=== PATIENT | female | born 1950 | race Caucasian/White ===

== ENCOUNTER → 2016-06-25 13:08 | Outpatient (CLI) | payer MEDICARE ==
[2014-10-04 08:32] VITALS: BMI 24.9
[~2016-06-25 13:08] MED LIST: BAYER CHEWABLE81 MG PO; BYSTOLIC2.5 MG PO; CELEXA40 MG PO; ESTRACE1 MG PO; HYZAAR 50-12.51 TAB PO; NEURONTIN600 MG PO; PREDNISONE20 MG PO; REGLAN5 MG PO
[2016-06-25 13:55] LABS: BASOPHILS 0.4 % (0.0-2.0); EOSINOPHILS 5.8 % (0-7); HEMATOCRIT 34.7 % (36.0-48.0); HEMOGLOBIN 11.2 g/dL (12-16); IMMATURE GRANULOCYTES 0.4 % (0-5); LYMPHOCYTES 32.5 % (15-50); MCH 30.4 pg (26.0-34.0); MCHC 32.3 g/dL (31.0-37.0); MCV 94.3 fL (80.0-100.0); MEAN PLATELET VOLUME 9.7 fL (7.4-10.4); MONOCYTES 7.2 % (2-11); NEUTROPHILS 53.7 % (40-80); PLATELET COUNT 274 10x3/uL (130-400); RBC 3.68 10x6/uL (4.00-5.40); RDW 15.5 % (11.5-14.5); WBC 7.3 10x3/uL (4.8-10.8)
[2016-06-25 14:13] LABS: ALBUMIN 3.4 g/dL (3.4-5.0); ANION GAP 11.5 mmol/L (8-16); BILIRUBIN - TOTAL 0.17 mg/dL (0.2-1.3); CALCIUM 8.6 mg/dL (8.5-10.1); CARBON DIOXIDE 28.7 mmol/L (21.0-32.0); CHOL - HDL RATIO 3.7 ratio (2.3-4.1); CREATININE - SERUM 1.2 mg/dL (0.6-1.3); POTASSIUM - SERUM 4.2 mmol/L (3.5-5.1); PROTEIN - SERUM 6.3 g/dL (6.4-8.2)
== END | disposition home or self-care (01) ==
LOC: D.LAB 13:08
PROVIDERS: Internal Medicine Cardiovascular Disease
DX: I73.9 Peripheral vascular disease, unspecified (principal); I10 Essential (primary) hypertension

== ENCOUNTER 2016-10-27 19:19 | Emergency (ER) | payer MEDICARE ==
[2014-10-04 08:32] VITALS: BMI 24.9
[2016-10-27 20:05] LABS: BASOPHILS 0.2 % (0-2); EOSINOPHILS 3.4 % (0-7); HEMATOCRIT 34.7 % (36.0-48.0); HEMOGLOBIN 11.4 g/dL (12-16); IMMATURE GRANULOCYTES 1.3 % (0-5); LYMPHOCYTES 30.4 % (15-50); MCH 29.7 pg (26.0-34.0); MCHC 32.9 g/dL (31.0-37.0); MCV 90.4 fL (80.0-100.0); MEAN PLATELET VOLUME 9.5 fL (7.4-10.4); MONOCYTES 7.1 % (2-11); NEUTROPHILS 57.6 % (40-80); PLATELET COUNT 347 10x3/uL (130-400); RBC 3.84 10x6/uL (4.00-5.40); RDW 14.4 % (11.5-14.5); WBC 9.7 10x3/uL (4.8-10.8)
[2016-10-27 20:21] LABS: INR 1.01 (0.85-1.17); PROTIME 13.1 SECONDS (11.6-15.0)
[2016-10-27 20:31] LABS: D-DIMER-QUANTITATIVE < 0.27 ug/mLFEU (0.20-0.54)
[2016-10-27 20:41] LABS: ALBUMIN 3.1 g/dL (3.4-5.0); ANION GAP 16.1 mmol/L (8-16); BILIRUBIN - TOTAL 0.12 mg/dL (0.2-1.3); CALCIUM 8.3 mg/dL (8.5-10.1); CARBON DIOXIDE 22.5 mmol/L (21.0-32.0); CREATININE - SERUM 1.2 mg/dL (0.6-1.3); POTASSIUM - SERUM 3.6 mmol/L (3.5-5.1); PROTEIN - SERUM 6.7 g/dL (6.4-8.2)
[2016-10-27 20:49] LABS: TROPONIN-I 0.036 ng/mL (0.000-0.060)
== END 2016-10-27 23:00 | disposition home or self-care (01) ==
LOC: D.ER 19:19
PROVIDERS: Family Medicine
DX: J44.1 Chronic obstructive pulmonary disease with (acute) exacerbation (principal); I10 Essential (primary) hypertension; K27.9 Peptic ulcer, site unspecified, unspecified as acute or chronic, without hemorrhage or perforation

== ENCOUNTER → 2016-11-05 14:25 | Outpatient (CLI) | payer MEDICARE ==
[2014-10-04 08:32] VITALS: BMI 24.9
== END | disposition home or self-care (01) ==
LOC: D.CT 14:25
DX: J18.9 Pneumonia, unspecified organism (principal)

== ENCOUNTER → 2016-12-19 08:00 | Outpatient (CLI) | payer MEDICARE ==
[2014-10-04 08:32] VITALS: BMI 24.9
== END | disposition home or self-care (01) ==
LOC: D.US 08:00
DX: I10 Essential (primary) hypertension (principal); M32.9 Systemic lupus erythematosus, unspecified; R60.9 Edema, unspecified; Z68.28 Body mass index [BMI] 28.0-28.9, adult

== ENCOUNTER 2017-01-23 05:35 | Outpatient (CLI) | payer MEDICARE ==
[~2017-01-23] VITALS: Ht 170.2 cm; Wt 81.6 kg
[2017-01-23] VITALS (9 sets, daily range): BP systolic 101–137; BP diastolic 47–68; BMI 28.2
[2017-01-23] MEDS ORDERED: HYDROCHLOROTHIA50 MG PO (07:04)
[2017-01-23] MEDS ORDERED: TENORMIN25 MG PO (07:04)
[2017-01-23 07:05] LABS: ANION GAP 11.3 mmol/L (8-16); CALCIUM 8.6 mg/dL (8.5-10.1); CARBON DIOXIDE 29.2 mmol/L (21.0-32.0); CREATININE - SERUM 0.9 mg/dL (0.6-1.3); POTASSIUM - SERUM 4.5 mmol/L (3.5-5.1)
[2017-01-23] MEDS ORDERED: PEPCID40 MG PO (07:05)
[2017-01-23] MEDS ORDERED: REQUIP1 MG PO (07:05)
[2017-01-23] MEDS ORDERED: LISINOPRIL5 MG PO (07:06)
[2017-01-23 07:07] LABS: BASOPHILS 0.4 % (0-2); EOSINOPHILS 4.2 % (0-7); HEMATOCRIT 36.7 % (36.0-48.0); HEMOGLOBIN 11.3 g/dL (12-16); IMMATURE GRANULOCYTES 0.4 % (0-5); MCHC 30.8 g/dL (31.0-37.0); MCV 94.3 fL (80.0-100.0); MEAN PLATELET VOLUME 9.7 fL (7.4-10.4); MONOCYTES 9.4 % (2-11); NEUTROPHILS 57.6 % (40-80); PLATELET COUNT 355 10x3/uL (130-400); RBC 3.89 10x6/uL (4.00-5.40); RDW 14.5 % (11.5-14.5); WBC 8.3 10x3/uL (4.8-10.8)
[2017-01-23 07:12] LABS: APTT 25.4 SECONDS (22.8-39.4); INR 0.93 (0.85-1.17); PROTIME 12.3 SECONDS (11.6-15.0)
--- NOTE | 2017-01-23 10:15 | NUR ---
0945- RECEIVED PT VIA BED FROM IR. PT IS ALERT AND ORIENTED. ON ROOM AIR. IV SEEN TO LEFT FOREARM THAT IS SALINE LOCKED. PT INSTRUCTED TO BE ON BEDREST ORDERED UNTIL 1530. IS AT BEDSIDE. WILL ADMIT PT AND CONTINUE TO MONITOR.
--- NOTE | 2017-01-23 16:43 | NUR ---
1207- PTS DRESSING TO LOWER LEFT BACK IS CLEAN, DRY, AND INTACT WITH NO BLEEDING SEEN. WILL CONTINUE TO MONITOR.
--- NOTE | 2017-01-23 17:30 | NUR ---
CALLED INTO PTS ROOM FOR PT NOT FEELING WELL, PT REQUESTED WE CHECK HER BLOOD PRESSURE. THIS NURSE CHECKED PTS BLOOD PRESSURE WHICH IS 162/66. PT STATED SHE HAS HER BLOOD PRESSURE MEDICATIONS WITH HER AND CAN TAKE HER LOSARTAN. I INFORMED PT THAT I NEED TO CALL AND SPEAK WITH NURSE PRACTIONER TO SEE WHAT SHE WOULD LIKE TO DO AND TO HAVE TAKE HOME MEDICATIONS HOME OR WE CAN SEND THEM TO PHARMACY. PT STATES SHE WILL HAVE TAKE HOME MEDICATIONS HOME. ROBIN ESCOBAR PAGED. WILL AWAIT CALLBACK AND CONTINUE TO MONITOR.
--- NOTE | 2017-01-23 17:40 | NUR ---
RECEIVED CALLBACK FROM ROBIN ESCOBAR NP WITH NEW ORDERS RECEIVED. WILL CONTINUE TO MONITOR.
--- NOTE | 2017-01-23 19:58 | NUR ---
PT AWAKE, ALERT, ORIENTED, LYING IN BED, HAS BECOME ACUTELY ILL, VOMITING UNCONTROLLABLY EVEN AFTER PHERNERGAN SUPP. IM PHENERGAN GIVEN WELL. PT DENIES ANY ACUTE CHANGES THAT COULD HAVE STARTED HER N/V, HOWEVER, PT DID BECOME TEARFUL DURING OUR CONVERSATION R/T HER BX AND POSSIBLE OUTCOME. HAS GONE HOME FOR THE NIGHT. WILL CONTINUE TO CONSOLE AND MONITOR PT CLOSELY.
--- NOTE | 2017-01-23 23:39 | NUR ---
PT CONTINUES WITH UNCONTROLLED NAUSEA, NO VOMITING AT THIS TIME. PRN ZOFRAN GIVEN WITH LITTLE RELIEF. HOLDING GABAPENTIN AND ATIVAN UNTIL NAUSEA IMPROVES. CONTINUE TO MONITOR CLOSELY.
[2017-01-24 01:20] VITALS: BP 104/52
[2017-01-24 05:43] VITALS: BP 109/54
--- NOTE | 2017-01-24 08:00 | NUR ---
INTRODUCED MYSELF TO PT PRIMARY RN FOR TODAYS SHIFT. PT IS A&O SITTING UP IN BED RESTING WITH AT BEDSIDE. PT IS PRETTY ANXIOUS TO BE DISCHARGED. PT HAD RENAL BIOPSY DONE AND SHOULD BE FINE FOR DISCHARGE TODAY. LEFT FLANK DRSG CDI AND ALL URINE HAS BEEN CLEAR YELLOW. WILL TALK WITH DOCTORS AND SEE ABOUT DISCHARGE.
[2017-01-24 08:44] VITALS: BP 106/64
[2017-01-24 09:46] VITALS: Ht 170.2 cm; Wt 81.6 kg
--- NOTE | 2017-01-24 10:02 | NUR ---
PT REFUSED HER MORNING LOSARTAN AND STATED AT HOME SHE WOULDNT TAKE IT WITH A SBP OF 106. STILL AWAITING RENAL FOR DISCHARGE ORDERS. WILL CTM.
[2017-01-24 10:40] LABS: BASOPHILS 0.1 % (0-2); EOSINOPHILS 1.7 % (0-7); HEMATOCRIT 35.5 % (36.0-48.0); HEMOGLOBIN 11.2 g/dL (12-16); IMMATURE GRANULOCYTES 0.3 % (0-5); LYMPHOCYTES 24.4 % (15-50); MCH 29.3 pg (26.0-34.0); MCHC 31.5 g/dL (31.0-37.0); MCV 92.9 fL (80.0-100.0); MEAN PLATELET VOLUME 9.3 fL (7.4-10.4); MONOCYTES 10.4 % (2-11); NEUTROPHILS 63.1 % (40-80); PLATELET COUNT 311 10x3/uL (130-400); RBC 3.82 10x6/uL (4.00-5.40); RDW 14.4 % (11.5-14.5); WBC 9.4 10x3/uL (4.8-10.8)
[2017-01-24 10:48] LABS: ANION GAP 10.6 mmol/L (8-16); CALCIUM 8.5 mg/dL (8.5-10.1); CARBON DIOXIDE 30.1 mmol/L (21.0-32.0); POTASSIUM - SERUM 3.7 mmol/L (3.5-5.1)
[2017-01-24] MEDS ORDERED: ZOFRAN ODT4 MG/UDTAB PO (11:19)
[2017-01-24 12:04] VITALS: BP 109/52
--- NOTE | 2017-01-24 12:04 | NUR ---
D/C L.FA PIV WITH CATHETER TIP FULLY INTACT. DISCHARGE TEACHING PROVIDED AND PAPERS SIGNED. PT AND DENY ANY QUESTIONS OR CONCERNS AND ARE READY TO LEAVE.
== END 2017-01-24 12:05 | disposition home or self-care (01) ==
LOC: D.OPS 05:35 → D.RAD 08:00 → D.M2 09:50 → D.OPS 01-24 12:05
PROVIDERS: Emergency Medicine; Internal Medicine Nephrology
DX: R80.9 Proteinuria, unspecified (principal); I12.9 Hypertensive chronic kidney disease with stage 1 through stage 4 chronic kidney disease, or unspecified chronic kidney disease; N18.4 Chronic kidney disease, stage 4 (severe); M32.9 Systemic lupus erythematosus, unspecified; R60.9 Edema, unspecified; Z01.812 Encounter for preprocedural laboratory examination

== ENCOUNTER → 2017-04-09 14:43 | Outpatient (CLI) | payer MEDICARE ==
[2017-01-24 09:46] VITALS: BMI 28.2
[~2017-04-09 14:43] MED LIST changes: +HYDROCHLOROTHIA50 MG PO; +LISINOPRIL5 MG PO; +PEPCID40 MG PO; +REQUIP1 MG PO; +TENORMIN25 MG PO; +ZOFRAN ODT4 MG/UDTAB PO
== END | disposition home or self-care (01) ==
LOC: D.US 14:43
DX: R59.0 Localized enlarged lymph nodes (principal)

== ENCOUNTER → 2017-11-28 06:08 | Outpatient (CLI) | payer MEDICARE ==
[2017-01-24 09:46] VITALS: BMI 28.2
== END | disposition home or self-care (01) ==
LOC: D.MAMMO 06:08
DX: Z12.31 Encounter for screening mammogram for malignant neoplasm of breast (principal)

== ENCOUNTER 2017-12-19 09:32 | Outpatient (CLI) | payer MEDICARE ==
[2017-01-24 09:46] VITALS: BMI 28.2
== END 2017-12-19 09:33 | disposition home or self-care (01) ==
LOC: D.MAMMO 09:32
DX: R92.8 Other abnormal and inconclusive findings on diagnostic imaging of breast (principal)

== ENCOUNTER 2018-12-16 19:34 | Emergency (ER) | payer OTHER ==
[~2018-12-16] VITALS: Ht 170.2 cm; Wt 79.1 kg
[2018-12-16 19:38] VITALS: Ht 170.2 cm; Wt 79.1 kg
[2018-12-16] MEDS ORDERED: ELAVIL25 MG PO (19:52)
[2018-12-16] MEDS ORDERED: GEMFIBROZIL600 MG PO (19:53)
[2018-12-16] MEDS ORDERED: OMEPRAZOLE40 MG PO (19:53)
[2018-12-16] MEDS ORDERED: CARAFATE1 G (19:53)
[2018-12-16] MEDS ORDERED: DROXIA200 MG PO (19:54)
[2018-12-16] MEDS ORDERED: REQUIP1 MG PO (19:55)
[2018-12-16] MEDS ORDERED: REQUIP1 MG (19:55)
[2018-12-16] MEDS ORDERED: ZETIA10 MG PO (19:55)
[2018-12-16] MEDS ORDERED: LISINOPRIL5 MG PO (19:55)
[2018-12-16] MEDS ORDERED: EFFEXOR75 MG PO (19:56)
[2018-12-16] MEDS ORDERED: FUROSEMIDE40 MG PO (19:56)
[2018-12-16] MEDS ORDERED: TENORMIN25 MG PO (19:57)
[2018-12-16] MEDS ORDERED: ATIVAN0.5 MG PO (19:57)
[2018-12-16 20:16] LABS: BASOPHILS 0.2 % (0-2); EOSINOPHILS 13.9 % (0-7); HEMATOCRIT 39.6 % (36.0-48.0); HEMOGLOBIN 13.5 g/dL (12-16); IMMATURE GRANULOCYTES 1.1 % (0-5); LYMPHOCYTES 17.7 % (15-50); MCH 31.8 pg (26.0-34.0); MCHC 34.1 g/dL (31.0-37.0); MCV 93.4 fL (80.0-100.0); MEAN PLATELET VOLUME 9.8 fL (7.4-10.4); MONOCYTES 6.1 % (2-11); PLATELET COUNT 311 10x3/uL (130-400); RBC 4.24 10x6/uL (4.00-5.40); RDW 13.3 % (11.5-14.5)
[2018-12-16 20:46] LABS: ALBUMIN 3.5 g/dL (3.4-5.0); ANION GAP 14.9 mmol/L (8-16); BILIRUBIN - TOTAL 0.21 mg/dL (0.2-1.3); CALCIUM 9.9 mg/dL (8.5-10.1); CARBON DIOXIDE 27.6 mmol/L (21.0-32.0); CREATININE - SERUM 1.2 mg/dL (0.6-1.3); POTASSIUM - SERUM 3.5 mmol/L (3.5-5.1); PROTEIN - SERUM 7.1 g/dL (6.4-8.2)
[2018-12-16] MEDS ORDERED: BENTYL 20 MG TA20 MG PO (21:07)
[2018-12-16] MEDS ORDERED: ZOFRAN ODT4 MG/UDTAB PO (21:07)
[2018-12-16 21:18] LABS: APPEARANCE CLEAR (CLEAR); BILIRUBIN NEGATIVE (NEGATIVE); COLOR YELLOW (YELLOW); GLUCOSE NEGATIVE (NEGATIVE); KETONE SMALL mg/dL (NEGATIVE); NITRITE NEGATIVE (NEGATIVE); PROTEIN NEGATIVE (NEGATIVE); UROBILINOGEN NORMAL (NORMAL)
[2018-12-16 21:19] LABS: BACTERIA FEW /hpf (NONE SEEN); EPITHELIAL CELLS 0-5 /hpf (0-5); RED CELLS - URINE 0-5 /hpf (0-5); WHITE CELLS - URINE OCC /hpf (0-5)
[2018-12-16 22:10] VITALS: BP 124/72
== END 2018-12-16 22:10 | disposition home or self-care (01) ==
LOC: D.ER 19:34
PROVIDERS: Family Medicine
DX: A08.4 Viral intestinal infection, unspecified (principal)